=== PATIENT | male | born 1955 | race Caucasian/White ===

== ENCOUNTER 2016-08-01 09:01 | Day surgery (SDC) | payer OTHER ==
[~2016-08-01] VITALS: Ht 185.4 cm; Wt 141.1 kg
[~2016-08-01 09:01] MED LIST: ALEVE220 MG PO; BACTRIM,SEPT1 TABLET PO; CENTRUM SILVER1 EAC5 PO; GLYBURIDE MICRON6 MG PO; HYDROCHLOROTHIA25 MG PO; HYDROCODON-ACE1 EAC7 PO; LANTUS 10100 UNITS/ SC; LANTUS 3 M100 UNITS1 SC; LISINOPRIL40 MG PO; LOVASTATIN20 MG PO; LOVENOX40 MG/0.4 PO; METFORMIN HCL1000 MG PO; NORVASC10 MG PO; NOVOLOG 10100 UNITS/ SC; NOVOLOG PE100 UNITS/ SC; NOVOLOG100 UNIT/1 SC; NOVOLOG100 UNIT/3 SQ; PRAVASTATIN SOD40 MG PO; PRINIVIL40 MG PO
[2016-08-01 09:25] VITALS: BP 135/74
[2016-08-01 09:56] LABS: POINT-OF-CARE METER ID UU14174212
[2016-08-01 10:47] LABS: POINT-OF-CARE METER ID UU14174212
[2016-08-01 16:30] VITALS: BP 120/58
[2016-08-01 17:30] VITALS: BP 131/64
== END 2016-08-01 17:55 | disposition home or self-care (01) ==
LOC: SDC 09:01
PROVIDERS: Orthopaedic Surgery
DX: M75.102 Unspecified rotator cuff tear or rupture of left shoulder, not specified as traumatic (principal); M71.9 Bursopathy, unspecified; M19.012 Primary osteoarthritis, left shoulder; I10 Essential (primary) hypertension; E11.9 Type 2 diabetes mellitus without complications; Z87.891 Personal history of nicotine dependence; Z79.4 Long term (current) use of insulin
CPT/HCPCS: 82948; C1713; J0171; J0330; J1100; J1170; J2250; J2405; J2710; J2795; J3010